=== PATIENT | male | born 1965 | race Caucasian/White ===

== ENCOUNTER 2017-07-25 11:52 | Emergency (ER) | payer BC ==
[~2017-07-25 11:52] MED LIST: COLC0.6T42 PO; INDO25OR PO; NAPR500T3 PO; TRAM50TA PO
[2017-07-25] MEDS ORDERED: HYDROcodone/APAP 5/325MG 1 TAB TABLET PO ONE (12:30)
[2017-07-25] MEDS ORDERED: NAPROXEN 500 MG TABLET PO ONE (12:30)
[2017-07-25 13:04] LABS: BASO % 0 % (0-3); EOS # 0.1 x10^3/uL (0.0-0.7); EOS % 1 % (0-3); HEMATOCRIT 42.1 % (39.0-53.0); HEMOGLOBIN 14.3 g/dL (13.0-17.5); LYMPH # 1.5 x10^3/uL (1.0-4.8); LYMPH % 15 % (24-48); MEAN CORPUSCULAR HEMOGLOBIN 30 pg (25-35); MEAN CORPUSCULAR HGB CONC 34 g/dL (31-37); MEAN CORPUSCULAR VOLUME 89 fL (79-100); MONO # 0.9 x10^3/uL (0.0-1.1); MONO % 9 % (0-9); NEUT # 7.2 x10^3uL (1.8-7.7); NEUT % 75 % (31-73); PLATELET COUNT 282 x10^3/uL (140-400); RED BLOOD COUNT 4.73 x10^6/uL (4.30-5.70); RED CELL DISTRIBUTION WIDTH 13.2 % (11.5-14.5); WHITE BLOOD COUNT 9.7 x10^3/uL (4.0-11.0)
[2017-07-25 13:09] LABS: CALCIUM 9.1 mg/dL (8.5-10.1); CREATININE 1.1 mg/dL (0.7-1.3); GFR 69.8; POTASSIUM 3.6 mmol/L (3.5-5.1)
--- NOTE | 2017-07-25 13:09 | PHYS DOC ---
Past History Past Medical History: Arthritis, Diverticulitis, Other Past Surgical History: Other Alcohol Use: Occasionally Drug Use: None Adult General Chief Complaint Chief Complaint: ANKLE PROBLEM HPI HPI Patient is a 52-year-old male who presents with complaints of left ankle and foot pain as well as redness of parts of the foot and the ankle. Patient states is similar to previous flare ups of gout. Patient recommendation to home with eyes but is at the point where the pain was not bearable studies at the come to the ED. Patient denies any fevers, chills, vomiting, diarrhea. Patient has no other complaints. Review of Systems Review of Systems Constitutional: Denies fever or chills [] Eyes: Denies change in visual acuity, redness, or eye pain [] HENT: Denies nasal congestion or sore throat [] Respiratory: Denies cough or shortness of breath [] Cardiovascular: No additional information not addressed in HPI [] GI: Denies abdominal pain, nausea, vomiting, bloody stools or diarrhea [] : Denies dysuria or hematuria [] Musculoskeletal: Denies back pain or joint pain [] Integument: Denies rash or skin lesions [] Neurologic: Denies headache, focal weakness or sensory changes [] Endocrine: Denies polyuria or polydipsia [] Current Medications Current Medications Current Medications Medications (Trade) Dose Ordered Sig/Peg Start Time Stop Time Status Last Admin Dose Admin Acetaminophen/ Hydrocodone Bitart (Lortab 5/325) 1 tab 1X ONCE 07/25/17 12:30 07/25/17 12:32 DC Naproxen (Naprosyn) 500 mg 1X ONCE 07/25/17 12:30 07/25/17 12:32 DC Allergies Allergies Allergies Coded Allergies Type Severity Reaction Last Updated Verified Penicillins Allergy Unknown 12/20/15 Yes Sulfa (Sulfonamide Antibiotics) Allergy Unknown 12/20/15 Yes Physical Exam Physical Exam Constitutional: Well developed, well nourished, no acute distress, non-toxic appearance. [] HENT: Normocephalic, atraumatic, Eyes: EOMI, conjunctiva normal, no discharge. [] Neck: Normal range of motion, trachea midline Cardiovascular: Tachycardia, normal pulses, normal perfusion Lungs & Thorax: Bilateral breath sounds clear to auscultation, no tachypnea Abdomen: No distention Skin: Warm, dry, erythema that is diffuse at the dorsum of the left foot as well as the lateral and medial aspect of the ankle however is no circumferential. Warm to touch and tender. There is no signs of septic joint and patient is neurovascularly intact Back: Normal range of motion Extremities: No tenderness, no cyanosis, no clubbing, ROM intact, no edema. Exception at the left foot as noted above Neurologic: Alert and oriented X 3, normal motor function, no focal deficits noted. [] Psychologic: Affect normal, judgement normal, mood normal. [] EKG EKG [] Radiology/Procedures Radiology/Procedures [] Course & Med Decision Making Course & Med Decision Making Pertinent Labs and Imaging studies reviewed. (See chart for details) 1342 pt feels improved. HR 97. Pt will follow up as directed. Because of the atypical distribution of erythema I am concerned that there may be a cellulitis present. However, the exam is not concerning for a septic joint at this time. [] Dragon Disclaimer Dragon Disclaimer This chart was dictated in whole or in part using Voice Recognition software in a busy, high-work load, and often noisy Emergency Department environment. It may contain unintended and wholly unrecognized errors or omissions. Departure Departure: Impression: Primary Impression: Gout Additional Impression: Cellulitis Disposition: 01 HOME, SELF-CARE Condition: STABLE Referrals: KAYLA MCNULTY (PCP) please see your doctor for recheck and re-evaluation in 2-4 days Patient Instructions: Cellulitis, Gout Scripts Clindamycin Hcl (CLINDAMYCIN HCL) 300 Mg Capsule 1 CAP PO TID, #21 CAP Prov: Blanca VEGA MD 07/25/17 Hydrocodone Bit/Acetaminophen (NORCO 5-325 TABLET) 1 Each Tablet 1 TAB PO TID for 3 Days, #9 TAB Prov: Blanca VEGA MD 07/25/17 Naproxen (NAPROXEN) 375 Mg Tablet 1 TAB PO TID for 5 Days, #15 TAB 5 Refills Prov: Blanca VEGA MD 07/25/17 Problem Qualifiers Blanca VEGA MD Jul 25, 2017 13:09
[2017-07-25] MEDS ORDERED: NAPR375T3 PO (13:48)
[2017-07-25] MEDS ORDERED: HYDR-971 PO (13:48)
[2017-07-25 13:50] VITALS: BP 131/85
[2017-07-25] MEDS ORDERED: CLIN300C8 PO (13:50)
== END 2017-07-25 14:00 | disposition home or self-care (01) ==
LOC: ER 11:52
DX: M10.9 Gout, unspecified (principal); L03.116 Cellulitis of left lower limb; M19.90 Unspecified osteoarthritis, unspecified site; Z88.2 Allergy status to sulfonamides; Z88.0 Allergy status to penicillin
CPT/HCPCS: 36415; 80048; 84550; 85025; 99284

== ENCOUNTER 2019-03-01 08:12 | Emergency (ER) | payer BC ==
[~2019-03-01 08:12] MED LIST changes: +CLIN300C8 PO; +HYDR-3165 PO; +NAPR-514 PO; +NAPR-695 PO; -NAPR500T3 PO
[2019-03-01 08:18] VITALS: BP 166/105
[2019-03-01] MEDS ORDERED: COLC0.6T34 PO (08:45)
[2019-03-01] MEDS ORDERED: HYDR-3165 PO (08:45)
[2019-03-01] MEDS ORDERED: INDO50CA5 PO (08:45)
[2019-03-01] MEDS ORDERED: DOXY100T PO (08:45)
--- NOTE | 2019-03-01 08:46 | PHYS DOC ---
Past History Past Medical History: Diverticulitis, Hypertension, Other Additional Past Medical Histor: gout Past Surgical History: Other Smoking: Non-smoker Alcohol Use: Occasionally Drug Use: None Adult General Chief Complaint Chief Complaint: HAND PROBLEM HPI HPI Patient is a 53-year-old male presents with left hand pain and swelling. This is the same as when he sat previous episodes of gout. This started approximately 5 days ago. No trauma. No punching. No numbness or tingling. Increased pain with movement. He has been using naproxen during this time with limited relief. No recent changes in diet to include red meat or pork or fish/ shell fish consumption. He does drink alcohol.[] Review of Systems Review of Systems Constitutional: Denies fever or chills [] Eyes: Denies change in visual acuity, redness, or eye pain [] HENT: Denies nasal congestion or sore throat [] Respiratory: Denies cough or shortness of breath [] Cardiovascular: No chest pain or palpitations[] GI: Denies abdominal pain, nausea, vomiting, bloody stools or diarrhea [] : Denies dysuria or hematuria [] Musculoskeletal: Denies back pain, see history of present illness[] Integument: Denies rash or skin lesions [] Neurologic: Denies headache, focal weakness or sensory changes [] Endocrine: Denies polyuria or polydipsia [] All other systems were reviewed and found to be within normal limits, except as documented in this note. Allergies Allergies Allergies Coded Allergies Type Severity Reaction Last Updated Verified Penicillins Allergy Unknown 12/20/15 Yes Sulfa (Sulfonamide Antibiotics) Allergy Unknown 12/20/15 Yes Physical Exam Physical Exam Constitutional: Well developed, well nourished, no acute distress, non-toxic appearance. [] HENT: Normocephalic, atraumatic, bilateral external ears normal, oropharynx moist, no oral exudates, nose normal. [] Eyes: PERRLA, EOMI, conjunctiva normal, no discharge. [] Neck: Normal range of motion, no tenderness, supple, no stridor. [] Cardiovascular:Heart rate regular rhythm, no murmur [] Lungs & Thorax: Bilateral breath sounds clear to auscultation [] Abdomen: Not examined[] Skin: Warm, dry, no rash. [] Back: No tenderness, no CVA tenderness. [] Extremities: no cyanosis, no clubbing, ROM intact. There is erythema and edema diffusely around his left hand, focused on the MCP joint of the index finger. No skin injury is appreciated. Patient is distal neurovascularly intact. There is no axillary lymphadenopathy.[] Neurologic: Alert and oriented X 3, normal motor function, normal sensory function, no focal deficits noted. [] Psychologic: Affect normal, judgement normal, mood normal. [] Current Patient Data Vital Signs Vital Signs Date Time Temp Pulse Resp B/P (MAP) Pulse Ox O2 Delivery O2 Flow Rate FiO2 03/01/19 08:18 97.9 102 18 99 Room Air EKG EKG [] Radiology/Procedures Radiology/Procedures [] Course & Med Decision Making Course & Med Decision Making Pertinent Labs and Imaging studies reviewed. (See chart for details) Medical decision making: Since patient does have a history of gout with similar symptoms, we will start treatment in the acute phase. Patient has been seen previously by ASAD and discussion of long-term medicine was had with rheumatology for this. We will let them or his primary care physician provide the long-term care. Also due to concern about possibility of skin infection, antibiotics will be prescribed prophylactically.[] Dragon Disclaimer Dragon Disclaimer This electronic medical record was generated, in whole or in part, using a voice recognition dictation system. Departure Departure: Impression: Primary Impression: Gout attack Disposition: 01 HOME, SELF-CARE Condition: IMPROVED Referrals: KAYLA MCNULTY (PCP) Follow-up in 2 days Patient Instructions: Gout Additional Instructions: Drink plenty of fluids. Avoid red meat, pork, fish, and shellfish in your diet. A vegetarian diet has been shown to decrease gout attacks as well. Add sour cherries to your diet, at least 10 a day, to help prevent future recurrence of gout. Follow-up with your regular doctor in 2 days for long-term care and reevaluation. Return to the ER if worsening pain or any other concerns. Scripts Hydrocodone Bit/Acetaminophen (NORCO 5-325 TABLET) 1 Each Tablet 1-2 TAB PO Q4-6HRS for severe pain, #20 TAB Prov: POOJA HELTON DO 03/01/19 Doxycycline Hyclate (DOXYCYCLINE HYCLATE) 100 Mg Tablet 1 TAB PO BID for HAND REDNESS, #20 TAB Prov: POOJA HELTON DO 03/01/19 Indomethacin (INDOMETHACIN) 50 Mg Capsule 1 CAP PO TID for GOUT, #30 CAP 1 Refill Prov: POOJA HELTON DO 03/01/19 Colchicine (COLCRYS) 0.6 Mg Tablet 1 TAB PO DIRECTED for GOUT, #3 TAB 1 Refill Take 2 tablets now, then 1 tablet in an hour Prov: POOJA HELTON DO 03/01/19 Problem Qualifiers Primary Impression: Gout attack Gout site: hand Gout etiology: unspecified cause Laterality: left Qualified Codes: M10.9 - Gout, unspecified POOJA HELTON DO Mar 01, 2019 08:46
== END 2019-03-01 08:50 | disposition home or self-care (01) ==
LOC: ER 08:12
DX: M10.9 Gout, unspecified (principal); M79.642 Pain in left hand; I10 Essential (primary) hypertension; Z88.0 Allergy status to penicillin; Z88.2 Allergy status to sulfonamides
CPT/HCPCS: 99283

== ENCOUNTER → 2019-09-18 | Outpatient (CLI) | payer BC ==
[~2019-09-18] MED LIST changes: +COLC0.6T34 PO; +DOXY100T PO; +INDO50CA15 PO
--- NOTE | 2019-09-18 23:50 | RAD ---
Three views left shoulder History: pain Internally and externally rotated AP of shoulder obtained, as well as "Y" view. The glenohumeral relationship is normal. The visualized osseous structures appear normal. There is blunting of the left costophrenic angle. Impression: No acute findings. end impression Electronically signed by: Efra Parisi III, MD (09/18/2019 11:47 PM) [facility]
== END | disposition home or self-care (01) ==
LOC: DXRAD 14:58
PROVIDERS: ATTEND Physician Assistant Medical
DX: M25.512 Pain in left shoulder (principal)
CPT/HCPCS: 73030

== ENCOUNTER 2019-12-05 19:48 | Emergency (ER) | payer BC ==
[~2019-12-05] VITALS: Ht 182.9 cm; Wt 83.9 kg
[2019-12-05] MEDS ORDERED: IV NORMAL SALINE 500ML 500 ML IV ONE (20:15)
[2019-12-05 20:18] LABS: BASO # 0.1 x10^3/uL (0.0-0.2); BASO % 1 % (0-3); EOS # 0.1 x10^3/uL (0.0-0.7); EOS % 1 % (0-3); HEMATOCRIT 48.7 % (39.0-53.0); LYMPH # 2.7 x10^3/uL (1.0-4.8); LYMPH % 20 % (24-48); MEAN CORPUSCULAR HEMOGLOBIN 29 pg (25-35); MEAN CORPUSCULAR HGB CONC 33 g/dL (31-37); MEAN CORPUSCULAR VOLUME 88 fL (79-100); MONO # 1.4 x10^3/uL (0.0-1.1); MONO % 10 % (0-9); NEUT # 9.7 x10^3uL (1.8-7.7); NEUT % 69 % (31-73); PLATELET COUNT 322 x10^3/uL (140-400); RED BLOOD COUNT 5.54 x10^6/uL (4.30-5.70); RED CELL DISTRIBUTION WIDTH 13.5 % (11.5-14.5)
--- NOTE | 2019-12-05 20:29 | PHYS DOC ---
Past History Past Medical History: Diverticulitis, Hypertension, Other Additional Past Medical Histor: gout Past Surgical History: Other Additional Past Surgical Histo: HERNIA Smoking: Non-smoker Alcohol Use: Occasionally Drug Use: None Adult General Chief Complaint Chief Complaint: RAPID HEART RATE HPI HPI Patient is a 54 show male presenting with palpitations. He has a history of PVCs apparently he has had extensive workup already including thyroid testing which was normal stress test and echocardiogram CT scan of the chest although at in the fairly recent past he tells me over the past year or 2 with these symptoms all of which were negative he said that he had a Holter monitor he said a cardiac atg java developer told him that he felt the PVCs were coming from an unusual location and so he is due to have a cardiac MRI on 17 December. He went to the emergency room at last night for a right swollen knee and a temperature of 100.0 he had a knee arthrocentesis performed he tells me that the diagnosis was gout and he was discharged on colchicine but he has yet to take it because he was worried that it might counteract his metoprolol he takes Tylenol but he spLits into 3 doses a day because he is worried doesn't like to take too many medications Review of Systems Review of Systems Constitutional: Denies fever or chills [] Eyes: Denies change in visual acuity, redness, or eye pain [] GI: Denies abdominal pain, nausea, vomiting, bloody stools or diarrhea [] : Denies dysuria or hematuria [] Neurologic: Denies headache, focal weakness or sensory changes [] Endocrine: Denies polyuria or polydipsia [] All other systems were reviewed and found to be within normal limits, except as documented in this note. Current Medications Current Medications Current Medications Medications (Trade) Dose Ordered Sig/Peg Start Time Stop Time Status Last Admin Dose Admin Sodium Chloride 500 ml @ 0 mls/hr 1X ONCE 12/05/19 20:15 12/05/19 20:16 UNV Allergies Allergies Allergies Coded Allergies Type Severity Reaction Last Updated Verified Penicillins Allergy Unknown 12/20/15 Yes Sulfa (Sulfonamide Antibiotics) Allergy Unknown 12/20/15 Yes Physical Exam Physical Exam Constitutional: Well developed, well nourished, no acute distress, non-toxic appearance. [] HENT: Normocephalic, atraumatic, bilateral external ears normal, oropharynx moist, no oral exudates, nose normal. [] Eyes: PERRLA, EOMI, conjunctiva normal, no discharge. [] Neck: Normal range of motion, no tenderness, supple, no stridor. [] Cardiovascular:Heart rate regular rhythm, no murmur [] Lungs & Thorax: Bilateral breath sounds clear to auscultation [] Abdomen: Bowel sounds normal, soft, no tenderness, no masses, no pulsatile mas ses. [] Skin: Warm, dry, no erythema, no rash. [] Back: No tenderness, no CVA tenderness. [] Extremities: There is a mild to moderate suprapatellar effusion on the right knee range of motion is actually fairly intact there is no erythema minimal tenderness Neurologic: Alert and oriented X 3, normal motor function, normal sensory function, no focal deficits noted. [] PsychologiANXIEDTY NOTED Current Patient Data Vital Signs Vital Signs Date Time Temp Pulse Resp B/P (MAP) Pulse Ox O2 Delivery O2 Flow Rate FiO2 12/05/19 19:49 98.6 115 16 97 Room Air EKG EKG []EKG shows a normal sinus rhythm with a rate of 96 QTc 403 no signs of LVH no STEMI or ischemia no PVCs seen. Cardiac monitoring during my 5-6 minutes conver sation with the patient initially in the emergency room showed 2 PVCs total Radiology/Procedures Radiology/Procedures [] Impressions: MY INTERPRETATION NO PNA OR PULM EDEMA. Course & Med Decision Making Course & Med Decision Making Pertinent Labs and Imaging studies reviewed. (See chart for details) []Well-appearing 54-year-old gentleman presenting palpitations PVCs long known history of PVCs followed closely by ASAD has had in his by his report to me after monitor echocardiogram stress test chest CT I'll basically showing PVCs apparently atg java developer has ordered a cardiac MRI at the end of this month. He came in complaining of heart palpitations initial heart rate was sinus tach with a rate of around 110 this came down very quickly with observation down to 85 patient had I saw to be 2 PVCs total when I was examining him and no further on the monitor while he was here in the emergency room. Mild leukocytosis could be related to the acute gout flare apparently he had synovial fluid testing done yesterday at the emergency room at and was dis charged with colchicine. I do not have that result at this time I did send a medical records request but as of this dictation had not yet received the report. Patient denies fever today, didn't feel warm earlier at the start of palpitations but afebrile here in the emergency room. He is very well-appearing we observed him for a few hours she had no further symptoms and discharged in stable condition with his family. Recommended continue follow-up as recommended return for fever or shortness of breath chest pain or any new concerns. Dragon Disclaimer Dragon Disclaimer This electronic medical record was generated, in whole or in part, using a voice recognition dictation system. Departure Departure: Impression: Primary Impression: Premature ventricular contraction Disposition: HOME, SELF-CARE Condition: STABLE Referrals: KAYLA MCNULTY (PCP) JERMAIN SAINI MD Dec 05, 2019 20:29
[2019-12-05 20:30] LABS: CALCIUM 9.4 mg/dL (8.5-10.1); CREATININE 1.1 mg/dL (0.7-1.3); GFR 69.2; POTASSIUM 4.1 mmol/L (3.5-5.1)
[2019-12-05 20:43] LABS: ALBUMIN 4.1 g/dL (3.4-5.0); ALBUMIN/GLOBULIN RATIO 1.1 (1.0-1.7); MAGNESIUM 2.1 mg/dL (1.8-2.4); TOTAL BILIRUBIN 1.1 mg/dL (0.2-1.0); TOTAL PROTEIN 7.8 g/dL (6.4-8.2)
[2019-12-05 21:53] VITALS: BP 130/66
--- NOTE | 2019-12-05 21:55 | EKG ---
[address] [address] Test Date: 2019-12-05 Test Time: 20:07:31 Pat Name: TIMMY MCCORMACK Department: Room: Gender: M Etcher Enameling: : 1965 Requested By: JERMAIN SAINI Order Number: [id number] Reading MD: Measurements Intervals [place] Rate: 96 P: 53 VA: 160 QRS: -10 QRSD: 88 T: 58 QT: 318 QTc: 403 Interpretive Statements SINUS RHYTHM LEFTWARD AXIS QRS(T) CONTOUR ABNORMALITY CONSIDER ANTEROSEPTAL MYOCARDIAL DAMAGE POSSIBLY ABNORMAL ECG RI6.01 No previous ECG available for comparison
--- NOTE | 2019-12-05 22:54 | RAD ---
Study: CHEST AP ONLY Indication: Shortness of breath. Comparison: None recently. Findings: Normal size of the cardiomediastinal silhouette. Unremarkable arpita. No lobar infiltrate or pneumothorax. Blunted left costophrenic angle. Impression: Blunted left costophrenic angle which could represent a small amount of pleural fluid or pleural thickening. Otherwise unremarkable appearance of the chest. Electronically signed by: HARRY CASTRO MD (12/05/2019 10:51 PM) [facility]
== END 2019-12-05 22:26 | disposition home or self-care (01) ==
LOC: ER 19:48
DX: I49.3 Ventricular premature depolarization (principal); I10 Essential (primary) hypertension; Z88.2 Allergy status to sulfonamides; Z88.0 Allergy status to penicillin
CPT/HCPCS: 36415; 71045; 80053; 83735; 83880; 84484; 85025; 93005; 99285; J7040

== ENCOUNTER 2022-02-23 23:53 | Emergency (ER) | payer BC ==
[~2022-02-23] VITALS: Ht 182.9 cm; Wt 91.0 kg
[~2022-02-23 23:53] MED LIST changes: +CLIN-95 PO; -CLIN300C8 PO; -COLC0.6T42 PO; +COLC0.6T45 PO
[2022-02-23 23:56] VITALS: BP 156/88
--- NOTE | 2022-02-24 00:26 | PHYS DOC ---
Past History Past Medical History: Diverticulitis, Hypertension, Other Additional Past Medical Histor: gout Past Surgical History: Other Additional Past Surgical Histo: HERNIa and repair Smoking: Non-smoker Alcohol Use: None Drug Use: None General Adult EDM: Chief Complaint: BACK PAIN - NO INJURY HPI: HPI: 56-year-old male presents with intermittent left flank pain. The patient states he has been having this pain at a mild level for a day or 2. Earlier this evening, the pain became much more significant, 7 out of 10. Is a stabbing pain that seems to come out of nowhere. He took naproxen and it got better around 6 PM. He was able to fall asleep later but woke up with intense pain again seemingly out of nowhere. Patient has a history of gout but has not had a flare in a couple years. He has never had a kidney stone. He denies chest pain, shortness of breath, diaphoresis. He denies overuse or trauma to his back. Review of Systems: Review of Systems: Constitutional: Denies fever or chills Eyes: Denies change in visual acuity HENT: Denies nasal congestion or sore throat Respiratory: Denies cough or shortness of breath Cardiovascular: Denies chest pain or edema GI: Denies abdominal pain, nausea, vomiting, bloody stools or diarrhea : Denies dysuria Musculoskeletal: Left flank pain Integument: Denies rash Neurologic: Denies headache, focal weakness or sensory changes Endocrine: Denies polyuria or polydipsia Lymphatic: Denies swollen glands Psychiatric: Denies depression or anxiety Allergies: Allergies: Allergies Coded Allergies Type Severity Reaction Last Updated Verified Penicillins Allergy Unknown 02/23/22 Yes Sulfa (Sulfonamide Antibiotics) Allergy Unknown 02/23/22 Yes Physical Exam: PE: Constitutional: Well developed, well nourished, no acute distress, non-toxic appearance. [] HENT: Normocephalic, atraumatic, bilateral external ears normal, oropharynx moist, no oral exudates, nose normal. [] Eyes: PERRLA, EOMI, conjunctiva normal, no discharge. [] Neck: Normal range of motion, no tenderness, supple, no stridor. [] Cardiovascular: Heart rate regular rhythm, no murmur [] Lungs & Thorax: Bilateral breath sounds clear to auscultation [] Abdomen: Bowel sounds normal, soft, no tenderness, no masses, no pulsatile masses. [] Skin: Warm, dry, no erythema, no rash. [] Back: No tenderness, mild left CVA tenderness. [] Extremities: No tenderness, no cyanosis, no clubbing, ROM intact, no edema. [] Neurologic: Alert and oriented X 3, normal motor function, normal sensory function, no focal deficits noted. [] Psychologic: Affect normal, judgement normal, mood normal. [] Current Patient Data: Vital Signs: Vital Signs Date Time Temp Pulse Resp B/P (MAP) Pulse Ox O2 Delivery O2 Flow Rate FiO2 02/23/22 23:56 98.0 20 156/88 (110) 98 EKG: EKG: [] Radiology/Procedures: Radiology/Procedures: [] Impressions: Exam: CT abdomen/pelvis without intravenous contrast Indication: Left flank pain and back pain. No trauma. Comparison: CT abdomen pelvis 12/31/2025 Technique: Helical CT imaging performed of the abdomen and pelvis without the use of intravenous contrast. Sagittal and coronal reformats were obtained. One or more of the following individualized dose reduction techniques were utilized for this examination: 1. Automated exposure control 2. Adjustment of the mA and/or kV according to patient size 3. Use of iterative reconstruction technique. Findings: Inherently limited evaluation without intravenous contrast. Lower chest: Mild atelectasis in the posterior lower lobes. The heart is normal in size. Liver: There is a 4 mm hypodensity in the left hepatic lobe, too small to characterize. The liver is normal in size. Gallbladder/Biliary Tree: Normal. Pancreas: Normal. Spleen: Normal. Adrenal Glands: Normal. Kidneys/Ureters/Bladder: Kidneys are normal in size. No nephrolithiasis or hydronephrosis. There is a 1 cm cyst in the left kidney. Small left peripelvic cysts. Ureters and bladder are normal. Reproductive Organs: Prostate gland is normal. Stomach, small bowel, and colon: The stomach is normal. There is no small bowel obstruction. Appendix is normal. Mild sigmoid diverticulosis. No acute div erticulitis. Vasculature: No aortic aneurysm. Minimal aortic calcifications. Lymph Nodes: No lymphadenopathy. Peritoneum and retroperitoneum: No free fluid or free air. Bones: No acute osseous abnormalities. Mild degenerative disc disease in lumbar scoliosis. Miscellaneous: Probable surgical changes of right inguinal hernia repair. Small fat-containing left inguinal hernia. IMPRESSION: 1. No urolithiasis or hydronephrosis. 2. Mild sigmoid diverticulosis without acute diverticulitis. Electronically signed by: Shasha Conti MD (02/24/2022 1:09 AM) [facility] DICTATED AND SIGNED BY: SHASHA CONTI MD DATE: 02/24/22 0104 CC: MADISON SALAS DO; KAYLA MCNULTY ~ Heart Score: C/O Chest Pain: N/A Risk Factors: Risk Factors: DM, Current or recent (<one month) smoker, HTN, HLP, family history of CAD, obesity. Risk Scores: Score 0 - 3: 2.5% MACE over next 6 weeks - Discharge Home Score 4 - 6: 20.3% MACE over next 6 weeks - Admit for Clinical Observation Score 7 - 10: 72.7% MACE over next 6 weeks - Early Invasive Strategies Course & Med Decision Making: Course & Med Decision Making Pertinent Labs and Imaging studies reviewed. (See chart for details) The patient's labs are unremarkable. His urinalysis is negative for blood or infection. Based on his description of symptoms it seems like this could be a kidney stone. CT the abdomen pelvis shows no stones or other significant findings. It could be muscle spasms. Patient does have a small left inguinal hernia. He does not appear to be life-threatening illnesses at this time. He is stable for discharge. [] Dragon Disclaimer: Dragon Disclaimer: This electronic medical record was generated, in whole or in part, using a voice recognition dictation system. Departure Departure: Impression: Primary Impression: Flank pain Disposition: HOME / SELF CARE / HOMELESS Condition: STABLE Referrals: KAYLA MCNULTY (PCP) Patient Instructions: Flank Pain, [id number] MADISON SALAS DO Feb 24, 2022 00:26
[2022-02-24] MEDS ORDERED: KETOROLAC 30 MG/ML VIAL. IVP ONE (00:30)
[2022-02-24] MEDS ORDERED: IV NORMAL SALINE 1,000ML 1,000 ML IV ONE (00:30)
[2022-02-24 01:02] LABS: BASO # 0.1 x10^3/uL (0.0-0.2); BASO % 2 % (0-3); EOS # 0.3 x10^3/uL (0.0-0.7); EOS % 4 % (0-3); HEMATOCRIT 41.4 % (39.0-53.0); HEMOGLOBIN 13.8 g/dL (13.0-17.5); LYMPH # 1.7 x10^3/uL (1.0-4.8); LYMPH % 21 % (24-48); MEAN CORPUSCULAR HEMOGLOBIN 30 pg (25-35); MEAN CORPUSCULAR HGB CONC 33 g/dL (31-37); MEAN CORPUSCULAR VOLUME 89 fL (79-100); MONO # 0.5 x10^3/uL (0.0-1.1); MONO % 6 % (0-9); NEUT # 5.3 x10^3uL (1.8-7.7); NEUT % 68 % (31-73); PLATELET COUNT 281 x10^3/uL (140-400); RED BLOOD COUNT 4.64 x10^6/uL (4.30-5.70); RED CELL DISTRIBUTION WIDTH 13.8 % (11.5-14.5); WHITE BLOOD COUNT 7.8 x10^3/uL (4.0-11.0)
[2022-02-24 01:11] LABS: CREATININE 0.9 mg/dL (0.7-1.3); GFR 86.7; POTASSIUM 4.3 mmol/L (3.5-5.1)
--- NOTE | 2022-02-24 01:12 | RAD ---
Exam: CT abdomen/pelvis without intravenous contrast Indication: Left flank pain and back pain. No trauma. Comparison: CT abdomen pelvis 12/31/2025 Technique: Helical CT imaging performed of the abdomen and pelvis without the use of intravenous cont rast. Sagittal and coronal reformats were obtained. One or more of the following individualized dose reduction techniques were utilized for this examinat ion: 1. Automated exposure control 2. Adjustment of the mA and/or kV according to patient size 3. Use of iterative reconstruction technique. Findings: Inherently limited evaluation without intravenous contrast. Lower chest: Mild atelectasis in the posterior lower lobes. The heart is normal in size. Liver: There is a 4 mm hypodensity in the left hepatic lobe, too small to characterize. The liver is normal in size. Gallbladder/Biliary Tree: Normal. Pancreas: Normal. Spleen: Normal. Adrenal Glands: Normal. Kidneys/Ureters/Bladder: Kidneys are normal in size. No nephrolithiasis or hydronephrosis. There is a 1 cm cyst in the left kidney. Small left peripelvic cysts. Ureters and bladder are normal. Reproductive Organs: Prostate gland is normal. Stomach, small bowel, and colon: The stomach is normal. There is no small bowel obstruction. Appendix is normal. Mild sigmoid diverticulosis. No acute diverticulitis. Vasculature: No aortic aneurysm. Minimal aortic calcifications. Lymph Nodes: No lymphadenopathy. Peritoneum and retroperitoneum: No free fluid or free air. Bones: No acute osseous abnormalities. Mild degenerative disc disease in lumbar scoliosis. Miscellaneous: Probable surgical changes of right inguinal hernia repair. Small fat-containing left i nguinal hernia. IMPRESSION: 1. No urolithiasis or hydronephrosis. 2. Mild sigmoid diverticulosis without acute diverticulitis. Electronically signed by: Shasha Conti MD (02/24/2022 1:09 AM) [facility]
[2022-02-24 01:18] LABS: BACTERIA,URINE 0 /HPF (0-FEW); CLARITY,URINE CLEAR; COLOR,URINE YELLOW; GLUCOSE,URINE NEG (NEG); NITRITE,URINE NEG (NEG); RBC,URINE 0 /HPF (0-2); SQUAMOUS EPITHELIAL CELL,UR OCC /LPF; UROBILINOGEN,URINE 0.2 mg/dL (0.2 mg/dL); WBC,URINE RARE /HPF (0-4)
[2022-02-24 01:19] LABS: ALBUMIN 3.9 g/dL (3.4-5.0); ALBUMIN/GLOBULIN RATIO 1.5 (1.0-1.7); TOTAL BILIRUBIN 0.3 mg/dL (0.2-1.0); TOTAL PROTEIN 6.5 g/dL (6.4-8.2)
[2022-02-24] MEDS ORDERED: CYCL10TA19 PO (01:59)
[2022-02-24] MEDS ORDERED: CYCLOBENZAPRINE 10 MG TABLET. PO ONE (02:00)
== END 2022-02-24 02:09 | disposition home or self-care (01) ==
LOC: ER 23:53
DX: R10.9 Unspecified abdominal pain (principal); I10 Essential (primary) hypertension; Z88.0 Allergy status to penicillin; Z88.2 Allergy status to sulfonamides
CPT/HCPCS: 36415; 74176; 80053; 81001; 85025; 96361; 96374; 99284; J1885; J7030